=== PATIENT | female | born 1990 | race Caucasian/White ===

== ENCOUNTER → 2019-04-30 16:34 | Outpatient (BNVA) | payer OTHER, SELFPAY | PROVIDERS: Family Provider Family Medicine; PCP Family Medicine; Visit Provider Nurse Practitioner Family | DX: J02.9 Acute pharyngitis, unspecified (principal); B00.2 Herpesviral gingivostomatitis and pharyngotonsillitis | CPT/HCPCS: 87070; 87880 ==

== ENCOUNTER → 2021-05-31 11:00 | Outpatient (BNVA) | payer OTHER, SELFPAY | PROVIDERS: Family Provider Family Medicine; PCP Family Medicine; Visit Provider Nurse Practitioner | DX: R39.9 Unspecified symptoms and signs involving the genitourinary system (principal) | CPT/HCPCS: 81000 ==

== ENCOUNTER 2021-06-01 13:28 | Emergency (ER) | payer OTHER, SELFPAY ==
[2021-06-01 14:01] VITALS: BP 97/63; PULSE 99; RESP 16; TEMP 36.8; O2SAT 99; BMI 28.3
[2021-06-01 15:47] LABS: Blood Urine 2+ (Negative); Glucose Urine UA Norm (Normal); Ketones Urine Negative (Negative); Nitrate Urine Positive (Negative); Protein Urine 2+ (Negative); Urine Appearance Cloudy (CLEAR); Urine Color Dark Yellow (Yellow); pH Urine 5 (5-7)
--- NOTE | 2021-06-01 15:47 | ED_ITS ---
Documented by User: MISAEL Mckeon 06/06/21 17:24 HPI - Abdominal Pain General: Chief Complaint: Abdominal Pain Stated Complaint: ABD PAIN RIGHT SIDE Time Seen by Provider: 06/01/21 15:16 Source: patient Mode of arrival: ambulatory Limitations: no limitations History of Present Illness: Patient is a nice 30-year-old female here for complaints of right flank and abdominal pain over the past 3 days. Patient states she was seen in urgent care and placed on ciprofloxacin. Patient states her pain continues to worsen. She is having some burning with urination. No previous history of nephroureterolithiasis. She has not been running fevers. She has had some nausea without active episodes of emesis. No changes to her bowel movements. She is not having any vaginal discharge or bleeding. Patient denies chance of as she has a Mirena IUD. MD elicited complaint: abdominal pain and flank pain Onset (ago): day(s) Pain Consistency: constant Location: RUQ, RLQ and R flank Severity: severe Quality: sharp Exacerbating factors: nothing Relieving factors: nothing Associated Symptoms: Reports chills, dysuria and nausea; Denies diarrhea, fever(s), hematuria and vomiting Review of Systems Const: Reports: chills and change in appetite; Denies: fever(s), body aches, fatigue or malaise Card: Denies: chest pain Resp: Denies: dyspnea GI: Reports: abdominal pain and nausea; Denies: vomiting or diarrhea : Reports: flank pain, dysuria and urinary urgency; Denies: hematuria, vaginal odor, vaginal bleeding, vaginal discharge or pelvic pain Musc: Reports: back pain (R flank pain); Denies: neck pain, extremity pain or joint pain Skin/Breast: Denies: rash Neuro: Denies: headache(s), numbness in extremities, weakness in extremities, sensory changes or dizziness PFSH ED PFSH: Social History Smoking and tobacco status: never smoked Alcohol intake: never Physical Exam Const: COMMON NORMALS: average body habitus, patient oriented x3, no limitations, healthy appearing, alert and well nourished GENERAL APPEARANCE: in distress (looks like she doesn't feel well) and ill appearing HENMT: COMMON NORMALS: normocephalic and atraumatic HEAD & SCALP: normocephalic and atraumatic Resp: COMMON NORMALS: normal respiratory effort and clear to auscultation bilaterally AUSCULTATION: clear to auscultation bilaterally Cardio: COMMON NORMALS: regular rate and regular rhythm RATE: regular rate RHYTHM: regular rhythm GI: COMMON NORMALS: Normal to inspection, nondistended, normoactive bowel sounds present, Soft to palpation, No hepatosplenomegaly present and no masses INSPECTION: Yes normal to inspection PALPATION: Yes Soft to palpation, Yes Tenderness to palpation present (GI) (throughout R side of abdomen) and Yes No hepatosplenomegaly present : BLADDER/KIDNEY EXAM: Yes CVA tenderness on the right Back/Pelvis: GENERAL BACK: Yes CVA tenderness Neuro: COMMON NORMALS: patient oriented x3 SENSORIUM/ORIENTATION: Yes alert Skin: COMMON NORMALS: no rashes or lesions noted GENERAL SKIN EXAM: no rashes or lesions noted Course ED course: Care transferred to ALINA Suarez pending remainder of workup/CT imaging. She is currently receiving IV Rocephin for presumed pyelonephritis. Vital Signs: Vital signs: Vital Signs Temperature 98.9 F 06/01/21 17:23 Pulse Rate 90 06/01/21 18:33 Respiratory Rate 20 H 06/01/21 18:33 Blood Pressure 98/78 06/01/21 18:33 Pulse Oximetry 98 06/01/21 18:33 MDM - Abdominal Pain Lab Data : 06/01/21 15:54 06/01/21 15:54 Labs/Radiology: Radiology Impressions Abdomen/Pelvis CT 06/01/21 16:02 IMPRESSION: 1. Acute right-sided pyelonephritis, as described above. 2. Additional findings, as above. COMMENTS: Consistent with the [employer]'s Incidental Findings Committee white paper (J Am Raul Radiol 2018): Any incidental renal lesion less than 1 cm or classified as too small to characterize, or any incidental cystic renal lesion characterized as simple-appearing, is likely benign. No follow-up imaging is recommended for these lesions per consensus recommendations based on imaging criteria. Laboratory Results WBC 16.7 10^3/uL (4.0-10.0) H 06/01/21 15:54 RBC 4.47 10^6/uL (4.1-5.3) 06/01/21 15:54 Hgb 13.2 g/dL (11.5-15.3) 06/01/21 15:54 Hct 40.1 % (37.0-47.0) 06/01/21 15:54 MCV 89.7 fl (81-99) 06/01/21 15:54 MCH 29.5 pg (28.0-34.0) 06/01/21 15:54 MCHC 32.9 g/dL (30.0-36.0) 06/01/21 15:54 RDW 12.6 % (12.1-15.1) 06/01/21 15:54 Plt Count 245 10^3/cmm (130-400) 06/01/21 15:54 MPV 8.9 fL (7.4-10.4) 06/01/21 15:54 Neut % (Auto) 88.7 % 06/01/21 15:54 Lymph % (Auto) 5.7 % 06/01/21 15:54 [place] % (Auto) 4.7 % 06/01/21 15:54 Eos % (Auto) 0.0 % 06/01/21 15:54 Baso % (Auto) 0.4 % 06/01/21 15:54 Neut # (Auto) 14.77 10^3/uL (1.8-7.7) H 06/01/21 15:54 Lymph # (Auto) 1.0 10^3/uL (0.8-4.8) 06/01/21 15:54 [place] # (Auto) 0.8 10^3/uL (0.2-0.9) 06/01/21 15:54 Eos # (Auto) 0.0 10^3/uL (0.0-0.8) 06/01/21 15:54 Baso # (Auto) 0.1 10^3/uL (0.0-0.1) 06/01/21 15:54 Nucleated RBC % (auto) 0 % 06/01/21 15:54 Nucleated RBCs # 0.0 /100WBC 06/01/21 15:54 Sodium 137 mmol/L (136-145) 06/01/21 15:54 Potassium 3.7 mmol/L (3.5-5.1) 06/01/21 15:54 Chloride 101 mmol/L (98-107) 06/01/21 15:54 Carbon Dioxide 21 mmol/L (22-29) L 06/01/21 15:54 Anion Gap 18.7 (5-19) 06/01/21 15:54 BUN 10 mg/dL (6-20) 06/01/21 15:54 Creatinine 0.6 mg/dL (0.5-0.9) 06/01/21 15:54 GFR Calculation 119.0 mL/min (90-130) 06/01/21 15:54 Glucose 86 mg/dL (65-115) 06/01/21 15:54 Calculated Osmolality 282 mOsm/kg (285-295) L 06/01/21 15:54 Lactic Acid 1.5 mmol/L (0.5-2.2) 06/01/21 15:50 Calcium 9.3 mg/dL (8.5-10.5) 06/01/21 15:54 Total Bilirubin 0.6 mg/dL (0.15-1.2) 06/01/21 15:54 AST 12 U/L (0-32) 06/01/21 15:54 ALT 14 U/L (0-33) 06/01/21 15:54 Alkaline Phosphatase 81 IU/L (35-105) 06/01/21 15:54 Total Protein 7.2 g/dL (6.6-8.7) 06/01/21 15:54 Albumin 4.1 g/dL (3.5-5.2) 06/01/21 15:54 Globulin 3.1 g/dL (1.3-4.6) 06/01/21 15:54 Lipase 14 U/L (13-60) 06/01/21 15:54 HCG, Qual Negative (Negative) 06/01/21 15:54 Urine Color Dark yellow (Yellow) 06/01/21 13:17 Urine Appearance Cloudy (CLEAR) 06/01/21 13:17 Urine pH 5 (5-7) 06/01/21 13:17 Ur Specific [place] 1.020 (1.005-1.030) 06/01/21 13:17 Urine Protein 2+ (Negative) H 06/01/21 13:17 Urine Glucose (UA) Norm (Normal) 06/01/21 13:17 Urine Ketones Negative (Negative) 06/01/21 13:17 Urine Blood 2+ (Negative) H 06/01/21 13:17 Urine Nitrate Positive (Negative) H 06/01/21 13:17 Urine Bilirubin 1+ (Negative) H 06/01/21 13:17 Urine Urobilinogen 1 mg/dL (Negative) H 06/01/21 13:17 Ur Leukocyte Esterase 2+ (Negative) H 06/01/21 13:17 Urine RBC 5-10 /hpf (0-2) H 06/01/21 13:17 Urine WBC Too numerous to cnt /hpf (0-5) H 06/01/21 13:17 Ur Squamous Epith Cells 0-4 /hpf (0-5) H 06/01/21 13:17 Amorphous Sediment Not Reportable 06/01/21 13:17 Urine Bacteria Trace /hpf (NONE) 06/01/21 13:17 Discharge Plan Discharge Patient Disposition: Home Clinical Impression: Pyelonephritis of right kidney Condition: Stable Prescriptions: New hydrocodone-acetaminophen 5-325 mg tablet 1 tab PO Q6H PRN (Reason: pain (scale score 7-10)) Qty: 6 0RF No Action fluoxetine 40 mg capsule 40 mg PO DAILY 0RF ciprofloxacin HCl [Cipro] 500 mg tablet 500 mg PO Q12H 7 Days Qty: 14 0RF phenazopyridine [Pyridium] 200 mg tablet 200 mg PO TID Qty: 6 0RF ondansetron 4 mg tablet,disintegrating 4 mg PO Q8H PRN (Reason: nausea and vomiting) Qty: 20 0RF Discharge Orders: Discharge ED (Routine); Ordered 06/01/21 Ordered By: Roberth Lucas Referrals: Veronica Martel MD [Primary Care Provider] - Discharge Diet: Usual diet Discharge Activity: Increase activity as tolerated Patient Instructions: Kidney Infection (ED) Activity Restrictions/Additional Instructions: Drink plenty of fluids. Medications as directed. You should start feeling better within the next 24 hours. Make sure to stay well-hydrated. Return to the ER for worsening pain, uncontrolled nausea and vomiting, or new concerns. Follow-up with primary care in 1 week. Sign Out Sign Out Data: Patient Sign Out occurred on 06/01/21 at 17:11. Patient's care was discussed, and care was transferred from to Roberth Lucas. Post-Handoff Eval: CT of the abdomen and pelvis indicated a right side pyelonephritis without any other significant abnormalities. Patient will be continued on her home with some cephalexin 500 twice a day along with her prescription of Cipro. Patient was also written for some hydrocodone for control of her pain. Patient reported that she was able to hold down water at home and I encouraged her to drink plenty of it. Recommend follow-up with primary care in 1 week or return to the ER for worsening symptoms. Patient reported understanding. Coding Level of Care Code ED Online Communications Manager for Chg Fwd Exam Detailed Documented by User: ALINA Still 06/01/21 18:02 HPI - Abdominal Pain General: Chief Complaint: Abdominal Pain Stated Complaint: ABD PAIN RIGHT SIDE Time Seen by Provider: 06/01/21 15:16 [facility] ED PFSH: Social History Smoking and tobacco status: never smoked Alcohol intake: never Course Vital Signs: Vital signs: Vital Signs Temperature 98.9 F 06/01/21 17:23 Pulse Rate 90 06/01/21 18:33 Respiratory Rate 20 H 06/01/21 18:33 Blood Pressure 98/78 06/01/21 18:33 Pulse Oximetry 98 06/01/21 18:33 MDM - Abdominal Pain Medical Decision Making 30-year-old female was referred to the ER for right side abdominal pain. On exam patient complains of right flank pain, positive CVA tenderness on the right, abdomen soft with some right-sided abdominal tenderness. Vital signs are unremarkable. Differential diagnosis includes appendicitis, pyelonephritis, renal calculi. Laboratory values noted a 16,000 white count, good renal function. CT of the abdomen pelvis showed no renal stone or appendicitis sug gested pyelonephritis. Patient was treated with IV fluids, 1 g of Rocephin, and morphine for pain. Patient will be continued on cephalexin and hydrocodone at home for pain and antibiotic. Patient was recommended to continue with the Cipro as prescribed also. Lab Data : 06/01/21 15:54 02/02/22 15:54 Labs/Radiology: Radiology Impressions Abdomen/Pelvis CT 06/01/21 16:02 IMPRESSION: 1. Acute right-sided pyelonephritis, as described above. 2. Additional findings, as above. COMMENTS: Consistent with the [employer]'s Incidental Findings Committee white paper (J Am Raul Radiol 2018): Any incidental renal lesion less than 1 cm or classified as too small to characterize, or any incidental cystic renal lesion characterized as simple-appearing, is likely benign. No follow-up imaging is recommended for these lesions per consensus recommendations based on imaging criteria. Laboratory Results WBC 16.7 10^3/uL (4.0-10.0) H 06/01/21 15:54 RBC 4.47 10^6/uL (4.1-5.3) 06/01/21 15:54 Hgb 13.2 g/dL (11.5-15.3) 06/01/21 15:54 Hct 40.1 % (37.0-47.0) 06/01/21 15:54 MCV 89.7 fl (81-99) 06/01/21 15:54 MCH 29.5 pg (28.0-34.0) 06/01/21 15:54 MCHC 32.9 g/dL (30.0-36.0) 06/01/21 15:54 RDW 12.6 % (12.1-15.1) 06/01/21 15:54 Plt Count 245 10^3/cmm (130-400) 06/01/21 15:54 MPV 8.9 fL (7.4-10.4) 06/01/21 15:54 Neut % (Auto) 88.7 % 06/01/21 15:54 Lymph % (Auto) 5.7 % 06/01/21 15:54 [place] % (Auto) 4.7 % 06/01/21 15:54 Eos % (Auto) 0.0 % 06/01/21 15:54 Baso % (Auto) 0.4 % 06/01/21 15:54 Neut # (Auto) 14.77 10^3/uL (1.8-7.7) H 06/01/21 15:54 Lymph # (Auto) 1.0 10^3/uL (0.8-4.8) 06/01/21 15:54 [place] # (Auto) 0.8 10^3/uL (0.2-0.9) 06/01/21 15:54 Eos # (Auto) 0.0 10^3/uL (0.0-0.8) 06/01/21 15:54 Baso # (Auto) 0.1 10^3/uL (0.0-0.1) 06/01/21 15:54 Nucleated RBC % (auto) 0 % 06/01/21 15:54 Nucleated RBCs # 0.0 /100WBC 06/01/21 15:54 Sodium 137 mmol/L (136-145) 06/01/21 15:54 Potassium 3.7 mmol/L (3.5-5.1) 06/01/21 15:54 Chloride 101 mmol/L (98-107) 06/01/21 15:54 Carbon Dioxide 21 mmol/L (22-29) L 06/01/21 15:54 Anion Gap 18.7 (5-19) 06/01/21 15:54 BUN 10 mg/dL (6-20) 06/01/21 15:54 Creatinine 0.6 mg/dL (0.5-0.9) 06/01/21 15:54 GFR Calculation 119.0 mL/min (90-130) 06/01/21 15:54 Glucose 86 mg/dL (65-115) 06/01/21 15:54 Calculated Osmolality 282 mOsm/kg (285-295) L 06/01/21 15:54 Lactic Acid 1.5 mmol/L (0.5-2.2) 06/01/21 15:50 Calcium 9.3 mg/dL (8.5-10.5) 06/01/21 15:54 Total Bilirubin 0.6 mg/dL (0.15-1.2) 06/01/21 15:54 AST 12 U/L (0-32) 06/01/21 15:54 ALT 14 U/L (0-33) 06/01/21 15:54 Alkaline Phosphatase 81 IU/L (35-105) 06/01/21 15:54 Total Protein 7.2 g/dL (6.6-8.7) 06/01/21 15:54 Albumin 4.1 g/dL (3.5-5.2) 06/01/21 15:54 Globulin 3.1 g/dL (1.3-4.6) 06/01/21 15:54 Lipase 14 U/L (13-60) 06/01/21 15:54 HCG, Qual Negative (Negative) 06/01/21 15:54 Urine Color Dark yellow (Yellow) 06/01/21 13:17 Urine Appearance Cloudy (CLEAR) 06/01/21 13:17 Urine pH 5 (5-7) 06/01/21 13:17 Ur Specific [place] 1.020 (1.005-1.030) 06/01/21 13:17 Urine Protein 2+ (Negative) H 06/01/21 13:17 Urine Glucose (UA) Norm (Normal) 06/01/21 13:17 Urine Ketones Negative (Negative) 06/01/21 13:17 Urine Blood 2+ (Negative) H 06/01/21 13:17 Urine Nitrate Positive (Negative) H 06/01/21 13:17 Urine Bilirubin 1+ (Negative) H 06/01/21 13:17 Urine Urobilinogen 1 mg/dL (Negative) H 06/01/21 13:17 Ur Leukocyte Esterase 2+ (Negative) H 06/01/21 13:17 Urine RBC 5-10 /hpf (0-2) H 06/01/21 13:17 Urine WBC Too numerous to cnt /hpf (0-5) H 06/01/21 13:17 Ur Squamous Epith Cells 0-4 /hpf (0-5) H 06/01/21 13:17 Amorphous Sediment Not Reportable 06/01/21 13:17 Urine Bacteria Trace /hpf (NONE) 06/01/21 13:17 Discharge Plan Discharge Patient Disposition: Home Clinical Impression: Pyelonephritis of right kidney Condition: Stable Prescriptions: New hydrocodone-acetaminophen 5-325 mg tablet 1 tab PO Q6H PRN (Reason: pain (scale score 7-10)) Qty: 6 0RF No Action fluoxetine 40 mg capsule 40 mg PO DAILY 0RF ciprofloxacin HCl [Cipro] 500 mg tablet 500 mg PO Q12H 7 Days Qty: 14 0RF phenazopyridine [Pyridium] 200 mg tablet 200 mg PO TID Qty: 6 0RF ondansetron 4 mg tablet,disintegrating 4 mg PO Q8H PRN (Reason: nausea and vomiting) Qty: 20 0RF Discharge Orders: Discharge ED (Routine); Ordered 06/01/21 Ordered By: Roberth Lucas Referrals: Veronica Martel MD [Primary Care Provider] - Discharge Diet: Usual diet Discharge Activity: Increase activity as tolerated Patient Instructions: Kidney Infection (ED) Activity Restrictions/Additional Instructions: Drink plenty of fluids. Medications as directed. You should start feeling better within the next 24 hours. Make sure to stay well-hydrated. Return to the ER for worsening pain, uncontrolled nausea and vomiting, or new concerns. Follow-up with primary care in 1 week. Sign Out Sign Out Data: Patient Sign Out occurred on 06/01/21 at 17:11. Patient's care was discussed, and care was transferred from to Roberth Lucas. Post-Handoff Eval: CT of the abdomen and pelvis indicated a right side pyelonephritis without any other significant abnormalities. Patient will be continued on her home with some cephalexin 500 twice a day along with her prescription of Cipro. Patient was also written for some hydrocodone for control of her pain. Patient reported that she was able to hold down water at home and I encouraged her to drink plenty of it. Recommend follow-up with primary care in 1 week or return to the ER for worsening symptoms. Patient reported understanding. Coding Level of Care Code ED Online Communications Manager for Chg Fwd Exam Detailed Documented by User: Richard Levi DO 06/07/21 06:59 HPI - Abdominal Pain General: Chief Complaint: Abdominal Pain Stated Complaint: ABD PAIN RIGHT SIDE Time Seen by Provider: 06/01/21 15:16 PFSH ED PFSH: Social History Smoking and tobacco status: never smoked Alcohol intake: never Course Vital Signs: Vital signs: Vital Signs Temperature 98.9 F 06/01/21 17:23 Pulse Rate 90 06/01/21 18:33 Respiratory Rate 20 H 06/01/21 18:33 Blood Pressure 98/78 06/01/21 18:33 Pulse Oximetry 98 06/01/21 18:33 MDM - Abdominal Pain Medical Decision Making 30-year-old female was referred to the ER for right side abdominal pain. On exam patient complains of right flank pain, positive CVA tenderness on the right, abdomen soft with some right-sided abdominal tenderness. Vital signs are unremarkable. Differential diagnosis includes appendicitis, pyelonephritis, renal calculi. Laboratory values noted a 16,000 white count, good renal function. CT of the abdomen pelvis showed no renal stone or appendicitis suggested pyelonephritis. Patient was treated with IV fluids, 1 g of Rocephin, and morphine for pain. Patient will be continued on cephalexin and hydrocodone at home for pain and antibiotic. Patient was recommended to continue with the Cipro as prescribed also. Chart reviewed and patient discussed with midlevel. Agree with assessment and plan. Lab Data : 06/01/21 15:54 06/01/21 15:54 Labs/Radiology: Radiology Impressions Abdomen/Pelvis CT 06/01/21 16:02
[2021-06-01 15:48] LABS: Add Urine Microscopic? YES; Bilirubin Urine 1+ (Negative); Leukocyte Esterase Urine 2+ (Negative); Urobilinogen Urine 1 mg/dL (Negative)
[2021-06-01 15:50] LABS: Add Urine Culture? Yes; Bacteria Urine TRACE /hpf; Squamous Epithelial Cell Urine 0-4 /hpf (0-5); WBC Urine TOO NUMEROUS TO CNT /hpf (0-5)
[2021-06-01 16:01] LABS: Basophils # 0.1 10^3/uL (0.0-0.1); Basophils % 0.4 %; Hematocrit 40.1 % (37.0-47.0); Hemoglobin 13.2 g/dL (11.5-15.3); Lymphocytes % 5.7 %; Mean Corpuscular HGB Conc 32.9 g/dL (30.0-36.0); Mean Corpuscular Hemoglobin 29.5 pg (28.0-34.0); Mean Corpuscular Volume 89.7 fl (81-99); Mean Platelet Volume 8.9 fL (7.4-10.4); Monocytes # 0.8 10^3/uL (0.2-0.9); Monocytes % 4.7 %; Neutrophils # 14.77 10^3/uL (1.8-7.7); Neutrophils % 88.7 %; Nucleated Red Blood Cells % 0 %; Platelet Count 245 10^3/cmm (130-400); Red Blood Count 4.47 10^6/uL (4.1-5.3); Red Cell Distribution Width 12.6 % (12.1-15.1); White Blood Count 16.7 10^3/uL (4.0-10.0)
[2021-06-01 16:02] VITALS: RESP 18; O2SAT 99
[2021-06-01] MEDS: ondansetron 2 mg/ML SDV 2 mL 4 MG IVP (16:02)
[2021-06-01] MEDS: morphine 4 mg/mL SDV 1 mL IVP ×2 (16:02→18:02)
--- NOTE | 2021-06-01 16:02 | CTR_ITS ---
PROCEDURE INFORMATION: Exam: CT Abdomen And Pelvis With Contrast Exam date and time: 06/01/2021 4:02 PM Age: 30 years old Clinical indication: Nausea and vomiting; Abdominal pain; Localized; Right lower quadrant (rlq); Additional info: R abdominal/flank pain TECHNIQUE: Imaging protocol: Computed tomography of the abdomen and pelvis with contrast. Axial, coronal and sagittal reformatted images were created and reviewed. Radiation optimization: All CT scans at this facility use at least one of these dose optimization techniques: automated exposure control; mA and/or kV adjustment per patient size (includes targeted exams where dose is matched to clinical indication); or iterative reconstruction. Contrast material: OMNI 300; Contrast volume: 95 ml; Contrast route: INTRAVENOUS (IV); COMPARISON: [facility] Pelvic 06/12/2016 10:08 AM RADIATION DOSE METRICS: Total DLP (mGy-cm): 1277.69 FINDINGS: Tubes, catheters and devices: Intrauterine device in place. Liver: Unremarkable. Gallbladder and bile ducts: No radiodense gallstones. No biliary ductal dilatation. Pancreas: Unremarkable. Spleen: Unremarkable. Adrenal glands: Normal. No mass. Kidneys and ureters: 5 mm low-density left renal lesion, too small to characterize. Right renal cortical mottling/striation with associated urothelial enhancement and perinephric edema. No radiodense calculi. No hydronephrosis. Stomach and bowel: No bowel wall thickening. No obstruction. No pneumatosis. Appendix: Normal. Intraperitoneal space: Trace nonspecific free pelvic fluid, likely physiologic. No organized fluid collection. No free air. Vasculature: Unremarkable. No aneurysm. Lymph nodes: No pathologically enlarged lymph nodes. Urinary bladder: Unremarkable as visualized. Reproductive: Probable involuting left ovarian corpus luteal cyst. Bones/joints: No acute osseous abnormality. Soft tissues: Small, fat containing umbilical hernia. CT/CT abdomen pelvis w con* [id number] IMPRESSION: 1. Acute right-sided pyelonephritis, as described above. 2. Additional findings, as above. COMMENTS: Consistent with the [place] [employer]'s Incidental Findings Committee white paper (J Am Raul Radiol 2018): Any incidental renal lesion less than 1 cm or classified as too small to characterize, or any incidental cystic renal lesion characterized as simple-appearing, is likely benign. No follow-up imaging is recommended for these lesions per consensus recommendations based on imaging criteria.
[2021-06-01] MEDS: sodium chloride 0.9% 1,000 ML 999 ML IV (16:10)
[2021-06-01] MEDS: cefTRIAXone 1,000 MG in sodium chloride 0.9% (plus) 50 ML 100 MG IV (16:16)
[2021-06-01 16:23] LABS: HCG, Serum Qual Negative (Negative)
[2021-06-01 16:32] LABS: Lactic Sepsis W/Reflex 1.5 mmol/L (0.5-2.2)
[2021-06-01 16:33] LABS: Alanine Aminotransferase 14 U/L (0-33); Albumin Level 4.1 g/dL (3.5-5.2); Alkaline Phosphatase 81 IU/L (35-105); Anion Gap 18.7 (5-19); Aspartate Amino Transferase 12 U/L (0-32); Blood Urea Nitrogen 10 mg/dL (6-20); Calcium 9.3 mg/dL (8.5-10.5); Carbon Dioxide 21 mmol/L (22-29); Chloride 101 mmol/L (98-107); Globulin 3.1 g/dL (1.3-4.6); Glucose 86 mg/dL (65-115); Lipase 14 U/L (13-60); Osmolality Calculated 282 mOsm/kg (285-295); Potassium 3.7 mmol/L (3.5-5.1); Sodium 137 mmol/L (136-145); Total Bilirubin 0.6 mg/dL (0.15-1.2); Total Protein 7.2 g/dL (6.6-8.7)
[2021-06-01] MEDS: iohexol 300 mg/mL 100 mL Btl IV (16:36)
[2021-06-01 17:23] VITALS: BP 100/58; PULSE 87; RESP 16; TEMP 37.2; O2SAT 100
[2021-06-01 18:02] VITALS: RESP 22; O2SAT 99
[2021-06-01] MEDS: HYDROcodone-acetaminophen 5-325 mg Tablet 2 TAB PO (18:03)
[2021-06-01] MEDS: ketorolac 30 mg/mL INJ 15 MG IVP (18:03)
[2021-06-01 18:33] VITALS: BP 98/78; PULSE 90; RESP 20; O2SAT 98
== END 2021-06-01 18:35 | disposition home or self-care (01) ==
PROVIDERS: Physician Assistant; Emergency Provider Nurse Practitioner Family; PCP Family Medicine
DX: N12 Tubulo-interstitial nephritis, not specified as acute or chronic (principal)
CPT/HCPCS: 36415; 74177; 80053; 81001; 83605; 83690; 84703; 85025; 87040; 87077; 87086; 87186; 96365; 96375; 96376; 99284; J0696; J1885; J2270; J2405; J7030; Q9967

== ENCOUNTER 2023-01-31 09:52 | Outpatient (CLI) | payer OTHER, SELFPAY ==
--- NOTE | 2023-01-31 10:01 | MR_ITS ---
WS: [id number] MRI BRAIN WITH AND WITHOUT CONTRAST HISTORY: MIGRINE HEADACHES COMPARISON: None available. TECHNIQUE: Multiplanar imaging performed through the brain with MultiHance 17 ml's IV. No acute infarcts are seen. Ruiz-white matter differentiation is well preserved. No susceptibility artifacts or prior lacunar infarcts. Ventricles and extra-axial spaces are normal. Clivus and pituitary gland are normal. Visualized posterior fossa and brainstem are also normal. Postcontrast images are negative for masses or vascular malformations. Dural venous sinuses are normal. Paranasal sinuses: Well aerated with no significant disease. Mastoid air cells: Very small amount of fluid in the mastoid air cells. Calvarium and scalp: Normal. IMPRESSION: 1. Normal MRI brain with contrast. 2. Normal no intracranial mass or abnormal enhancement.
[2023-01-31] MEDS: gadobenate dimeglumine 20 mL vial IV (10:53)
== END 2023-01-31 09:53 | disposition home or self-care (01) ==
PROVIDERS: PCP Family Medicine; Visit Provider Nurse Practitioner Family
DX: G43.909 Migraine, unspecified, not intractable, without status migrainosus (principal)
CPT/HCPCS: 70553; A9577